=== PATIENT | male | born 1970 | race Caucasian/White ===

== ENCOUNTER 2019-04-20 09:32 | Day surgery (SDC) | payer OTHER ==
[2019-04-20] MEDS ORDERED: LIDOCAINE 2% MDV (20MG/ML) 20ML VIAL IV ONE (09:33)
[2019-04-20] MEDS ORDERED: PROPOFOL 10 MG/ML VIAL IV ONE (09:33)
--- NOTE | 2019-04-21 06:01 | Operative Note ---
OPERATION: COLONOSCOPY to the cecum with cold snare polypectomy x2. INDICATION: Colorectal cancer screening. ANESTHESIA: Intravenous sedation was administered by the department of anesthesiology and included Diprivan titrated to effect. PROCEDURE: Following informed consent from this alert individual including a discussion of the risks and benefits of the procedure and an opportunity for the patient to ask questions, the patient was in the left lateral decubitus position. A digital rectal examination was performed. No abnormalities were noted. Following this, the Olympus [id number] video colonoscope was inserted into the rectum without resistance. The rectal mucosa had a normal appearance with normal folds and distensibility. The colonoscope was advanced up through the colon to the level of the cecum without much difficulty. Throughout the bowel the mucosa appeared normal, the folds were normal, and the bowel was fairly well distensible. The cecum was defined by noting the appendiceal orifice and ileocecal valve. From the base of the cecum, the colonoscope was then slowly withdrawn. Overall, the colon preparation was adequate. Actually, at the base of the cecum there was a small 3-4 mm polyp noted which was removed with cold snare polypectomy and suctioned through the colonoscope into a collection trap. In the distal ascending colon there was a second 4 mm polyp noted which was removed with cold snare polypectomy and likewise suctioned into a collection trap. No other changes were appreciated throughout the remainder of the colon. Retroflexion in the rectum was endoscopically normal. The endoscope was straightened and removed. The patient tolerated the procedure well and was returned to the recovery area in stable condition. IMPRESSION: A 4 mm cecal polyp and 4 mm ascending colon polyp each removed with cold snare polypectomy as described above. The remainder of the examination was unremarkable. RECOMMENDATIONS: Further recommendations will be forthcoming pending results of pathology obtained today. Followup will also be with Estiven Harris, nurse practitioner. As always, thank you for allowing me to participate in the care of your patient. JOSE CARLOS
== END 2019-04-20 12:00 | disposition home or self-care (01) ==
LOC: HOP 09:32
PROVIDERS: ATTEND Internal Medicine Gastroenterology
DX: Z12.11 Encounter for screening for malignant neoplasm of colon (principal); K63.5 Polyp of colon; D12.2 Benign neoplasm of ascending colon; I10 Essential (primary) hypertension